=== PATIENT | male | born 1990 | race Caucasian/White ===

== ENCOUNTER 2017-02-21 00:23 | Emergency (ER) | payer OTHER ==
[~2017-02-21] VITALS: Ht 188 cm; Wt 76.3 kg
[2017-02-21 00:46] VITALS: BP 136/87
== END 2017-02-21 01:45 | disposition left against medical advice (07) ==
LOC: ED 00:23
DX: T15.01XA Foreign body in cornea, right eye, initial encounter (principal); H10.9 Unspecified conjunctivitis; F19.10 Other psychoactive substance abuse, uncomplicated; F15.90 Other stimulant use, unspecified, uncomplicated; F11.90 Opioid use, unspecified, uncomplicated; X58.XXXA Exposure to other specified factors, initial encounter; Y93.89 Activity, other specified; Y92.89 Other specified places as the place of occurrence of the external cause; Y99.0 Civilian activity done for income or pay